=== PATIENT | male | born 1985 | race Native Hawaiian/Other Pacific Islander ===

== ENCOUNTER 2016-09-16 10:53 | Emergency (ER) | payer OTHER ==
[~2016-09-16] VITALS: Ht 180.3 cm; Wt 102.1 kg
[2016-09-16] MEDS ORDERED: OMEPRAZOLE20 M1 OR (11:09)
[2016-09-16] MEDS ORDERED: TIZA4TAB5 PO (11:09)
[2016-09-16] MEDS ORDERED: MELOXICAM15 MG OR (11:09)
[2016-09-16] MEDS ORDERED: INDOMETHACIN50 MG PO (11:09)
[2016-09-16] MEDS ORDERED: TRAM50TA PO (11:10)
[2016-09-16 11:58] VITALS: BP 127/84
== END 2016-09-16 11:58 | disposition home or self-care (01) ==
LOC: ED 10:53
DX: M54.5 Low back pain (principal); M48.06 Spinal stenosis, lumbar region
CPT/HCPCS: 96360; 96374; 96375; 96376; 99283; J1100; J1885

== ENCOUNTER 2017-10-25 07:26 | Outpatient (CLI) | payer OTHER ==
[~2017-10-25 07:26] MED LIST: INDOMETHACIN50 MG PO; MELOXICAM15 MG OR; OMEPRAZOLE20 M1 OR; TIZA4TAB5 PO; TRAM50TA PO
== END 2017-10-25 19:01 | disposition home or self-care (01) ==
LOC: LABW 07:26
DX: Z02.0 Encounter for examination for admission to educational institution (principal)
CPT/HCPCS: 36415; 86787

== ENCOUNTER 2018-02-22 22:46 | Emergency (ER) | payer OTHER ==
[~2018-02-22] VITALS: Ht 180.3 cm; Wt 96.6 kg
[2018-02-22 23:24] LABS: PLATELET COUNT 214 K/uL (142-355)
[2018-02-22 23:33] LABS: POTASSIUM 4.2 mmol/L (3.6-5.2)
[2018-02-23 01:02] VITALS: BP 116/833; TEMP 98
== END 2018-02-23 01:02 | disposition home or self-care (01) ==
LOC: ED 22:46
PROVIDERS: Allergy & Immunology
DX: R10.84 Generalized abdominal pain (principal)
CPT/HCPCS: 36415; 80053; 84443; 84550; 85027; 96360; 99284; J7120; Q9963

== ENCOUNTER 2021-10-23 08:21 | Outpatient (CLI) | payer OTHER | END 2021-10-23 18:51 | disposition home or self-care (01) | LOC: RAD 08:21 | PROVIDERS: ATTEND Physician Assistant | DX: M25.532 Pain in left wrist (principal); M79.642 Pain in left hand; W19.XXXA Unspecified fall, initial encounter ==

== ENCOUNTER 2022-06-28 17:07 | Emergency (ER) | payer OTHER ==
[~2022-06-28] VITALS: Ht 180.3 cm; Wt 104.3 kg
[2022-06-28 19:19] VITALS: BP 165/95; TEMP 98.3
== END 2022-06-28 19:19 | disposition home or self-care (01) ==
LOC: ED 17:07
DX: J20.9 Acute bronchitis, unspecified (principal); J10.1 Influenza due to other identified influenza virus with other respiratory manifestations; Z20.822 Contact with and (suspected) exposure to COVID-19
CPT/HCPCS: 87502; 87635; 94664; 96372; 99283; J2930; U0003